=== PATIENT | female | born 1960 | race Caucasian/White ===

== ENCOUNTER 2016-12-28 17:35 | Emergency (ER) | payer OTHER ==
[~2016-12-28] VITALS: Ht 170.2 cm; Wt 104.8 kg
[~2016-12-28 17:35] MED LIST: CIPRO750 MG PO; COLACE100 MG PO; DOXYCYCLINE HYC50 MG; FLA500 PO; LAC PO; METFORMIN ER500 M1; NORCO1 TA2 PO; PHOSLO667 MG; PHOSLO667 MG PO; ZOF4 PO
[2016-12-28 19:16] VITALS: BP 149/88
== END 2016-12-28 19:25 | disposition home or self-care (01) ==
LOC: ED 17:35
DX: I16.0 Hypertensive urgency (principal)

== ENCOUNTER 2018-03-18 17:26 | Emergency (ER) | payer OTHER ==
[~2018-03-18] VITALS: Ht 170.2 cm; Wt 96.6 kg
[2018-03-18 17:31] VITALS: BP 136/83; Ht 170.2 cm; Wt 96.6 kg
== END 2018-03-18 18:33 | disposition home or self-care (01) ==
LOC: ED 17:26
DX: M25.562 Pain in left knee (principal); I10 Essential (primary) hypertension; E11.9 Type 2 diabetes mellitus without complications
CPT/HCPCS: J1885; J7512

== ENCOUNTER 2018-04-06 19:06 | Emergency (ER) | payer OTHER ==
[~2018-04-06] VITALS: Ht 167.6 cm; Wt 97.1 kg
[2018-04-06 19:19] VITALS: Ht 167.6 cm; Wt 97.1 kg
[2018-04-06 22:49] VITALS: BP 156/96
== END 2018-04-06 22:49 | disposition home or self-care (01) ==
LOC: ED 19:06
DX: M25.562 Pain in left knee (principal); I10 Essential (primary) hypertension; E11.9 Type 2 diabetes mellitus without complications
CPT/HCPCS: Q0092